=== PATIENT | female | born 1985 | race Two or more races ===

== ENCOUNTER 2018-02-24 00:03 | Emergency (ER) | payer OTHER ==
[~2018-02-24] VITALS: Ht 157.5 cm; Wt 81.6 kg
[2018-02-24 01:35] VITALS: BP 129/78
[2018-02-24] MEDS ORDERED: ACETAMINOPHEN 325 MG TABLET PO ONE (02:00)
[2018-02-24] MEDS ORDERED: ACETAMINOPHEN 325 MG TABLET ONE (02:01)
== END 2018-02-24 02:09 | disposition home or self-care (01) ==
LOC: ER 00:13
DX: O26.891 Other specified pregnancy related conditions, first trimester (principal); R51 Headache; Z3A.01 Less than 8 weeks gestation of pregnancy
CPT/HCPCS: A4606; Z7610